=== PATIENT | male | born 1980 | race Caucasian/White ===

== ENCOUNTER 2023-09-06 16:36 | Emergency (ER) | payer MEDICARE, OTHER ==
[~2023-09-06] VITALS: Ht 177.8 cm; Wt 93.2 kg
[2023-09-06] MEDS: fentaNYL 100 MCG/2 ML INJECTION IV PRN (17:02)
[2023-09-06] MEDS ORDERED: ISOVUE-370 76% 100ML VIAL As Ordered ONE (17:08)
[2023-09-06 17:21] LABS: HEMATOCRIT 43.8 % (42.0-52.0); HEMOGLOBIN 14.8 g/dl (13.5-17.5); MEAN CORPUSCULAR HEMOGLOBIN 32.2 pg (27.0-33.0); MEAN CORPUSCULAR HGB CONC 33.8 g/dl (32.0-36.5); MEAN CORPUSCULAR VOLUME 95.2 fl (80.0-96.0); PLATELET COUNT, AUTOMATED 334 10^3/uL (150-450); WHITE BLOOD COUNT 8.8 10^3/uL (4.0-10.0)
[2023-09-06 18:15] VITALS: BP 119/80
[2023-09-06 18:21] VITALS: O2SAT 94
[2023-09-06] MEDS: BOOSTRIX VACCINE (TETANUS/DIPHTH/ACEL. PERTUSSIS) 0.5ML SYR IM.IMMUN ONE (18:26)
[2023-09-06 19:02] VITALS: TEMP 97.2
== END 2023-09-06 18:40 | disposition home or self-care (01) ==
LOC: EDBD 16:36 → M ED 16:36
DX: S81.812A Laceration without foreign body, left lower leg, initial encounter (principal); S30.0XXA Contusion of lower back and pelvis, initial encounter; S20.211A Contusion of right front wall of thorax, initial encounter; V23.41XA Electric (assisted) bicycle driver injured in collision with car, pick-up truck or van in traffic accident, initial encounter; Y92.410 Unspecified street and highway as the place of occurrence of the external cause; Y93.9 Activity, unspecified; Y99.9 Unspecified external cause status; M47.892 Other spondylosis, cervical region
CPT/HCPCS: 12002; 70450; 71260; 72125; 72131; 74177; 85027; 86850; 86900; 86901; 90471; 90715; 93041; 99285; Q9967

== ENCOUNTER → 2023-11-18 | Outpatient (CLI) | payer MEDICARE | LOC: M SOG 07:55 | PROVIDERS: ATTEND Physician Assistant | DX: M25.562 Pain in left knee (principal); Z53.9 Procedure and treatment not carried out, unspecified reason ==

== ENCOUNTER → 2023-11-21 | Outpatient (CLI) | payer MEDICARE, OTHER | LOC: M RAD 08:50 | PROVIDERS: ATTEND Nurse Practitioner Family | DX: K76.89 Other specified diseases of liver (principal) ==

== ENCOUNTER → 2023-11-29 | Outpatient (CLI) | payer OTHER | LOC: M SOG 07:24 | PROVIDERS: ATTEND Physician Assistant | DX: M25.562 Pain in left knee (principal) ==

== ENCOUNTER → 2024-01-17 | Outpatient (CLI) | payer OTHER | LOC: M PLARAD 14:02 | PROVIDERS: ATTEND Physician Assistant | DX: M25.562 Pain in left knee (principal); M25.462 Effusion, left knee; R60.0 Localized edema ==

== ENCOUNTER 2024-11-06 21:08 | Emergency (ER) | payer OTHER ==
[~2024-11-06] VITALS: Ht 177.8 cm; Wt 95.5 kg
[2024-11-06 21:10] VITALS: O2SAT 96
[2024-11-06] MEDS ORDERED: AMOX875T PO (22:32)
[2024-11-06] MEDS ORDERED: IBUP600T42 PO (22:32)
[2024-11-06] MEDS: AMOXICILLIN 500 MG CAP PO ONE (22:51)
[2024-11-06] MEDS: OXYCODONE/APAP 5MG/325MG(HOME DOSE PACK) PO ONE (22:51)
[2024-11-06] MEDS ORDERED: PERI0.126 PO (22:53)
[2024-11-06 22:55] VITALS: BP 137/64; TEMP 98.9
== END 2024-11-06 22:55 | disposition home or self-care (01) ==
LOC: M ED 21:08
DX: K02.9 Dental caries, unspecified (principal); K03.81 Cracked tooth; Z79.899 Other long term (current) drug therapy; Z88.5 Allergy status to narcotic agent

== ENCOUNTER → 2025-01-11 | Outpatient (CLI) | payer MEDICARE, OTHER ==
[~2025-01-11] MED LIST: AMOX875T PO; IBUP600T42 PO; PERI0.126 PO
== END ==
LOC: M SOG 08:29
PROVIDERS: ATTEND Physician Assistant
DX: M25.422 Effusion, left elbow (principal)